=== PATIENT | male | born 1975 | race Two or more races ===

== ENCOUNTER 2019-06-25 14:04 | Inpatient (IN) | payer MEDICAID ==
[~2019-06-25] VITALS: Ht 175.3 cm; Wt 104.3 kg
[2019-06-25] MEDS ORDERED: SODIUM CHLORIDE 0.9% 1,000 ML IV ONE (14:29)
[2019-06-25 14:59] LABS: MEAN CORPUSCULAR HEMOGLOBIN 18.9 pg (28.0-32.0); MEAN CORPUSCULAR VOLUME 63.2 fL (80.0-94.0); MEAN PLATELET VOLUME 7.1 fl (7.4-10.4); PLATELET 335 x1000/uL (130-400); RED BLOOD CELL COUNT 2.18 mill/uL (4.7-6.1); RED CELL DISTRIBUTION WIDTH 17.7 % (11.6-14.6)
[2019-06-25 15:09] LABS: CHLORIDE 87 mEq/L (98-107); INR 1.4; PROTHROMBIN TIME 14.4 sec (9.6-11.0)
[2019-06-25 15:19] LABS: HEMOGLOBIN. 4.1 g/dL (14.0-18.0)
[2019-06-25 15:20] LABS: HEMATOCRIT. 13.8 % (42.0-52.0)
[2019-06-25 16:03] LABS: CLARITY URINE CLEAR (CLEAR); COLOR URINE YELLOW (YELLOW); KETONES URINE 3+ (NEGATIVE); LEUKOCYTE ESTERASE URINE NEGATIVE (NEGATIVE); NITRITE URINE NEGATIVE (NEGATIVE); OCCULT BLOOD URINE NEGATIVE (NEGATIVE); PROTEIN URINE NEGATIVE (NEGATIVE); SPECIFIC GRAVITY URINE 1.006 (1.005-1.030)
[2019-06-25 16:26] LABS: PLATELET ESTIMATE NORMAL
[2019-06-25] MEDS ORDERED: POTASSIUM CHLORIDE INJ 40 MEQ in DEXT 5% WATER 250 ML IV NR (17:00)
[2019-06-25] MEDS ORDERED: MAGNESIUM/ALUMINUM HYDROXIDE/SIMETHICONE 30ML UDC PO PRN (22:00)
[2019-06-25] MEDS ORDERED: DOCUSATE SODIUM 100MG CAPSULE PO PRN (22:00)
[2019-06-25] MEDS ORDERED: CLONIDINE 0.1MG TABLET PO PRN (22:00)
[2019-06-25] MEDS ORDERED: ONDANSETRON HCL 4MG/2ML INJ IV PRN (22:00)
[2019-06-25] MEDS ORDERED: HYDROCODONE/ACETAMINOPHEN 5/325MG TABLET PO PRN (22:00)
[2019-06-25 23:52] LABS: HEMATOCRIT 17.8 % (42.0-52.0); HEMOGLOBIN 5.6 g/dL (14.0-18.0); INR 1.3; PROTHROMBIN TIME 13.1 sec (9.6-11.0)
[2019-06-26] VITALS (14 sets, daily range): BP systolic 102–129; BP diastolic 62–88
[2019-06-26] MEDS ORDERED: CEPH250C2 MT (01:08)
[2019-06-26] MEDS ORDERED: PRED2.5T4 MT (01:08)
[2019-06-26 06:39] LABS: BASOPHILS % 0.6 % (0.0-2.0); EOSINOPHILS % 0.3 % (0.0-5.0); LYMPHOCYTES % 18.1 % (20.0-50.0); MEAN CORPUSCULAR HEMOGLOBIN 23.4 pg (28.0-32.0); MEAN CORPUSCULAR VOLUME 71.1 fL (80.0-94.0); MONOCYTES % 9.3 % (2.0-8.0); NEUTROPHILS % 71.7 % (40.0-76.0); PLATELET 262 x1000/uL (130-400); RED BLOOD CELL COUNT 2.88 mill/uL (4.7-6.1); RED CELL DISTRIBUTION WIDTH 23.9 % (11.6-14.6)
[2019-06-26 07:01] LABS: CHLORIDE 101 mEq/L (98-107)
[2019-06-26] MEDS ORDERED: DEXT 5%/0.45% NACL KCL 10MEQ/L 1,000 ML IV SCH ×2 (07:40)
[2019-06-26 09:10] LABS: HEMOGLOBIN. 6.8 g/dL (14.0-18.0)
[2019-06-26 09:11] LABS: HEMATOCRIT. 20.5 % (42.0-52.0)
[2019-06-26 10:50] LABS: HEMOGLOBIN 7.3 g/dL (14.0-18.0)
[2019-06-26 10:57] LABS: INR 1.2; PROTHROMBIN TIME 12.8 sec (9.6-11.0)
[2019-06-26] MEDS ORDERED: LORAZEPAM 2MG/ML CPJ IV PRN (13:45)
[2019-06-26 20:21] LABS: HEMATOCRIT 23.5 % (42.0-52.0); HEMOGLOBIN 7.7 g/dL (14.0-18.0)
[2019-06-27] VITALS (9 sets, daily range): BP systolic 105–136; BP diastolic 58–86
[2019-06-27] MEDS: SODIUM CHLORIDE 0.9% 1,000 ML IV SCH ×2 (00:40→23:05)
[2019-06-27 06:33] LABS: BASOPHILS % 0.7 % (0.0-2.0); EOSINOPHILS % 0.6 % (0.0-5.0); HEMOGLOBIN. 7.5 g/dL (14.0-18.0); LYMPHOCYTES % 20.9 % (20.0-50.0); MEAN CORPUSCULAR HEMOGLOBIN 23.7 pg (28.0-32.0); MONOCYTES % 8.4 % (2.0-8.0); NEUTROPHILS % 69.4 % (40.0-76.0); PLATELET 239 x1000/uL (130-400); RED BLOOD CELL COUNT 3.16 mill/uL (4.7-6.1); RED CELL DISTRIBUTION WIDTH 24.1 % (11.6-14.6)
[2019-06-27 06:39] LABS: CHLORIDE 99 mEq/L (98-107)
[2019-06-27 06:49] LABS: HAPTOGLOBIN 180 mg/dL (30-200)
[2019-06-27] MEDS ORDERED: POTASSIUM CHLORIDE 20MEQ TABLET SR PO SCH ×2 (10:00→14:00)
[2019-06-27] MEDS: ACETAMINOPHEN 325MG TABLET PO PRN ×2 (10:01→19:55)
[2019-06-27 12:50] LABS: HEPATITIS B SURFACE ANTIGEN NEGATIVE
[2019-06-27 13:20] LABS: HEPATITIS A AB IGM NEGATIVE (NEGATIVE)
[2019-06-27] MEDS ORDERED: IOHEXOL-300 100 ML BOTTLE ONE ×2 (13:32→14:54)
[2019-06-27] MEDS ORDERED: VANCOMYCIN 2,000 MG in DEXT 5% WATER 500 ML IV SCH (14:00)
[2019-06-27] MEDS: PIPERACILLIN/TAZOBACTAM 3.375 G in DEXT 5% WATER 100 ML IV SCH ×2 (14:19→22:51)
[2019-06-27] MEDS ORDERED: POTASSIUM CHLORIDE 20MEQ TABLET SR PO NR (18:45)
[2019-06-27] MEDS ORDERED: MORPHINE SULFATE 2 MG/ML CPJ (NOT FOR IM USE) IV PRN (18:45)
[2019-06-27 19:44] LABS: BG BASE EXCESS 2.1 mmol/L (-2.0-2.0); BG CARBOXYHEMOGLOBIN 0.9 % (0.5-1.5); BG DEOXYHEMOGLOBIN 2.6 % (0.0-5.0); BG FRACTION INSPIRED OXYGEN 21; BG HCO3 ACT 25.5 mmol/L (22.0-26.0); BG METHEMOGLOBIN 0.1 % (0.0-1.5); BG OXYGEN SATURATION 97.4 % (92.0-98.5); BG OXYHEMOGLOBIN 96.4 % (94.0-97.0); BG PCO2 34.8 mmHg (35.0-45.0); BG PH 7.482 (7.350-7.450); BG PO2 94.5 mmHg (75.0-100.0); BG SAMPLE SITE RIGHT RADIAL; BG TOTAL HEMOGLOBIN 9.4 g/dL (12.0-18.0); BG VENT MODE ROOM AIR
[2019-06-27 20:49] LABS: HEMATOCRIT 28.9 % (42.0-52.0); HEMOGLOBIN 9.4 g/dL (14.0-18.0)
[2019-06-27] MEDS ORDERED: VANCOMYCIN 1250MG in DEXTROSE 5% WATER 250ML IV SCH (22:00)
[2019-06-28] VITALS: BP 112/72
[2019-06-28] MEDS: VANCOMYCIN 1250MG in DEXTROSE 5% WATER 250ML IV SCH ×4 (01:58→21:34)
[2019-06-28 04:00] VITALS: BP 122/68
[2019-06-28] MEDS: PIPERACILLIN/TAZOBACTAM 3.375 G in DEXT 5% WATER 100 ML IV SCH ×5 (06:00→23:27)
[2019-06-28 07:18] LABS: HEMATOCRIT 26.3 % (42.0-52.0); HEMOGLOBIN 8.5 g/dL (14.0-18.0); MEAN CORPUSCULAR HEMOGLOBIN 24.4 pg (28.0-32.0); MEAN CORPUSCULAR VOLUME 75.5 fL (80.0-94.0); PLATELET 221 x1000/uL (130-400); RED BLOOD CELL COUNT 3.48 mill/uL (4.7-6.1); RED CELL DISTRIBUTION WIDTH 24.4 % (11.6-14.6)
[2019-06-28 08:00] VITALS: BP 112/78
[2019-06-28 08:05] LABS: CHLORIDE 104 mEq/L (98-107)
[2019-06-28 08:15] LABS: LDL CHOLESTEROL 74 mg/dL (5-100)
[2019-06-28 08:16] LABS: HDL CHOLESTEROL 20 mg/dL (40-59); T4 FREE 1.24 ng/dL (0.76-1.46)
[2019-06-28 12:00] VITALS: BP 118/79
[2019-06-28] MEDS: DEXT 5%/0.9% NACL 1,000 ML IV SCH (15:10)
[2019-06-28 16:00] VITALS: BP 120/84
[2019-06-28 17:52] LABS: HEMATOCRIT 30.1 % (42.0-52.0); HEMOGLOBIN 9.6 g/dL (14.0-18.0)
[2019-06-28 18:04] LABS: CHLORIDE 104 mEq/L (98-107)
[2019-06-28 20:00] VITALS: BP 127/87
[2019-06-28] MEDS: ACETAMINOPHEN 325MG TABLET PO PRN (21:49)
[2019-06-29] VITALS: BP 112/68
[2019-06-29 03:59] VITALS: BP 106/67
[2019-06-29] MEDS: DEXT 5%/0.9% NACL 1,000 ML IV SCH ×2 (04:05→17:32)
[2019-06-29] MEDS: PIPERACILLIN/TAZOBACTAM 3.375 G in DEXT 5% WATER 100 ML IV SCH ×4 (05:19→23:33)
[2019-06-29] MEDS: VANCOMYCIN 1250MG in DEXTROSE 5% WATER 250ML IV SCH (06:33)
[2019-06-29 08:00] VITALS: BP 119/76
[2019-06-29] MEDS ORDERED: LIDOCAINE HCL 1% 20ML VIAL (Pyxis) INJ ONE (08:43)
[2019-06-29] MEDS ORDERED: BUPIVACAINE HCL/PF 0.5% (5MG/ML) 10ML ONE (08:43)
[2019-06-29] MEDS ORDERED: NORMAL SALINE 0.9% 10 ML SYR ONE (08:44)
[2019-06-29] MEDS ORDERED: BACITRACIN 50,000 UNITS/VIAL ONE (08:44)
[2019-06-29] MEDS ORDERED: NEOSTIGMINE METHYLSULFATE 1MG/ML 10 ML VIAL ONE (09:07)
[2019-06-29] MEDS ORDERED: GLYCOPYRROLATE 0.2 MG/ML 2ML VIAL ONE (09:07)
[2019-06-29] MEDS ORDERED: METOCLOPRAMIDE HCL 10MG/2ML VIAL ONE (09:07)
[2019-06-29] MEDS ORDERED: SODIUM CHLORIDE 0.9% 10ML VIAL ONE (09:07)
[2019-06-29] MEDS ORDERED: SUCCINYLCHOLINE CHLORIDE 200MG/10ML IV ONE (09:07)
[2019-06-29] MEDS ORDERED: EPHEDRINE SULFATE 50MG/ML VIAL ONE (09:07)
[2019-06-29] MEDS ORDERED: PROPOFOL 200MG/20ML VIAL IV ONE (09:07)
[2019-06-29] MEDS ORDERED: LIDOCAINE HCL/PF 1% 10 MG/ML 5ML VIAL ONE (09:07)
[2019-06-29] MEDS ORDERED: MIDAZOLAM HCL 2 MG/2 ML VIAL ONE (09:07)
[2019-06-29] MEDS ORDERED: ROCURONIUM BROMIDE 10MG/ML VIAL 5ML IV ONE (09:07)
[2019-06-29] MEDS ORDERED: PHENYLEPHRINE HCL 10 MG/ML 1ML (IV VIAL) IV ONE (09:07)
[2019-06-29] MEDS ORDERED: FENTANYL CITRATE/PF 50MCG/ML 2ML VIAL ONE ×2 (09:07→09:45)
[2019-06-29] MEDS ORDERED: ONDANSETRON HCL 4MG/2ML INJ ONE (09:07)
[2019-06-29 09:58] LABS: BASOPHILS % 0.7 % (0.0-2.0); EOSINOPHILS % 0.9 % (0.0-5.0); HEMATOCRIT. 29.1 % (42.0-52.0); HEMOGLOBIN. 9.5 g/dL (14.0-18.0); LYMPHOCYTES % 24.2 % (20.0-50.0); MEAN CORPUSCULAR VOLUME 76.1 fL (80.0-94.0); MEAN PLATELET VOLUME 6.6 fl (7.4-10.4); MONOCYTES % 10.3 % (2.0-8.0); NEUTROPHILS % 63.9 % (40.0-76.0); PLATELET 233 x1000/uL (130-400); RED BLOOD CELL COUNT 3.82 mill/uL (4.7-6.1); RED CELL DISTRIBUTION WIDTH 24.8 % (11.6-14.6)
[2019-06-29] MEDS ORDERED: HYDROMORPHONE HCL/PF 2MG/ML CPJ IV PRN (11:00)
[2019-06-29 12:00] VITALS: BP 139/88
[2019-06-29 13:09] LABS: CHLORIDE 106 mEq/L (98-107)
[2019-06-29] MEDS ORDERED: POTASSIUM CHLORIDE 20MEQ TABLET SR PO NR (15:00)
[2019-06-29 16:00] VITALS: BP 143/94
[2019-06-29 20:00] VITALS: BP 129/84
[2019-06-29 21:21] LABS: HEMOGLOBIN 9.4 g/dL (14.0-18.0)
[2019-06-30] VITALS: BP 134/88
[2019-06-30] MEDS ORDERED: VANCOMYCIN 1 G PREMIX 200 ML IV SCH ×2 (03:00→18:00)
[2019-06-30 04:00] VITALS: BP 127/76
[2019-06-30] MEDS: PIPERACILLIN/TAZOBACTAM 3.375 G in DEXT 5% WATER 100 ML IV SCH ×3 (05:26→17:07)
[2019-06-30] MEDS: DEXT 5%/0.9% NACL 1,000 ML IV SCH (05:31)
[2019-06-30 08:00] VITALS: BP 124/91
[2019-06-30 08:22] LABS: EOSINOPHILS % 1.2 % (0.0-5.0); HEMATOCRIT. 29.3 % (42.0-52.0); HEMOGLOBIN. 9.6 g/dL (14.0-18.0); LYMPHOCYTES % 36.4 % (20.0-50.0); MEAN CORPUSCULAR HEMOGLOBIN 25.1 pg (28.0-32.0); MEAN CORPUSCULAR VOLUME 76.8 fL (80.0-94.0); MEAN PLATELET VOLUME 6.8 fl (7.4-10.4); MONOCYTES % 9.3 % (2.0-8.0); NEUTROPHILS % 52.1 % (40.0-76.0); PLATELET 222 x1000/uL (130-400); RED BLOOD CELL COUNT 3.82 mill/uL (4.7-6.1); RED CELL DISTRIBUTION WIDTH 23.9 % (11.6-14.6)
[2019-06-30 12:00] VITALS: BP 121/82
[2019-06-30 16:00] VITALS: BP 148/84
[2019-06-30] MEDS ORDERED: POTASSIUM CHLORIDE 20MEQ TABLET SR PO NR (20:30)
== END 2019-06-30 21:30 | DRG 694 ==
LOC: ER 14:04 → 7WST 19:51 → EDBEDREQ 19:55 → EDBEDREQTM 19:55 → ENRESERV 21:06
PROVIDERS: ADMIT Internal Medicine; ATTEND Internal Medicine
PROC: 30233N1 Transfusion of Nonautologous Red Blood Cells into Peripheral Vein, Percutaneous Approach (ICD-10-PCS; 2019-06-25)
PROC: 0JBL0ZZ Excision of Right Upper Leg Subcutaneous Tissue and Fascia, Open Approach (ICD-10-PCS; principal; 2019-06-29)
DX: D49.89 Neoplasm of unspecified behavior of other specified sites (principal); N17.9 Acute kidney failure, unspecified; D68.9 Coagulation defect, unspecified; E46 Unspecified protein-calorie malnutrition; E87.2 Acidosis; E87.1 Hypo-osmolality and hyponatremia; I95.9 Hypotension, unspecified; D62 Acute posthemorrhagic anemia; I27.20 Pulmonary hypertension, unspecified; R16.2 Hepatomegaly with splenomegaly, not elsewhere classified; D50.9 Iron deficiency anemia, unspecified; E87.6 Hypokalemia; E80.6 Other disorders of bilirubin metabolism; Z91.19 Patient's noncompliance with other medical treatment and regimen; Z85.72 Personal history of non-Hodgkin lymphomas; Z68.34 Body mass index [BMI] 34.0-34.9, adult
CPT/HCPCS: 36415; 36600; 71045; 71260; 74177; 76700; 80048; 80061; 80202; 81003; 82375; 82805; 83010; 83605; 83615; 83735; 83880; 84132; 84439; 84443; 84484; 84550; 85014; 85018; 85027; 85049; 85384; 86705; 86709; 86803; 86850; 86880; 86900; 86920; 87340; 88307; 93005; 93306; 93970; 97161; 99285; J0330; J2250; J2370; J2405; J2543; J2704; J2710; J2765; J3010; J3370; J3480; J3490; J7030; J7040; J7042; J7060; P9016; Q9967